=== PATIENT | male | born 1955 | race Two or more races ===

== ENCOUNTER 2017-08-25 12:08 | Inpatient (IN) | payer BC ==
[~2017-08-25] VITALS: Ht 180.3 cm; Wt 89.3 kg
[2017-08-25] MEDS ORDERED: ACETAMINOPHEN 500 MG TABLET ONE (13:52)
[2017-08-25] MEDS ORDERED: CEFAZOLIN PMX 1GM/50ML 50 ML ONE (13:53)
[2017-08-25] MEDS ORDERED: ACETAMINOPHEN 500 MG TABLET PO ONE (14:00)
[2017-08-25] MEDS ORDERED: SODIUM CHLORIDE 0.9% 1,000ML IVBOLUS ONE (14:00)
[2017-08-25] MEDS ORDERED: SODIUM CHLORIDE FLUSH 10ML SYR IVF ONE (14:00)
[2017-08-25] MEDS ORDERED: CEFAZOLIN PMX 1GM/50ML 50 ML IVPB ONE (14:00)
[2017-08-25 14:19] LABS: HEMATOCRIT 36.7 % (39.2-51.8); HEMOGLOBIN 12.5 g/dL (13.7-18.0); WHITE BLOOD COUNT 13.6 x10^3/uL (3.4-10)
[2017-08-25] MEDS ORDERED: METF500T4 PO (14:22)
[2017-08-25] MEDS ORDERED: LISI-167 PO (14:22)
[2017-08-25] MEDS ORDERED: IBUP-1223 PO (14:22)
[2017-08-25] MEDS ORDERED: METO25TA35 PO (14:22)
[2017-08-25 14:31] LABS: BLOOD UREA NITROGEN 20 mg/dL (7-18)
[2017-08-25] MEDS ORDERED: NS + 20MEQ KCL 1,000 ML IV SCH (14:55)
[2017-08-25] MEDS ORDERED: POLYETHYLENE GLYCOL 17 GM PACKET PO PRN (15:00)
[2017-08-25] MEDS ORDERED: DOCUSATE 100 MG CAPSULE PO PRN (15:00)
[2017-08-25] MEDS ORDERED: ONDANSETRON 2MG/ML, 2ML IVPush PRN (15:00)
[2017-08-25] MEDS ORDERED: hydrALAzine 20 MG/ML, 1ML IV PRN (15:30)
[2017-08-25] MEDS ORDERED: VANCOMYCIN PER PHARMACY MC PRN (15:30)
[2017-08-25] MEDS ORDERED: ENALAPRILAT 1.25 MG/ML, 2ML IV PRN (15:30)
[2017-08-25] MEDS ORDERED: GADOBUTROL 10 MMOL/10 ML PFS ONE (15:38)
[2017-08-25] MEDS: INSULIN ASPART 100 UNITS/ML, PEN SQ-INSULIN SCH ×2 (16:00→22:22)
[2017-08-25] MEDS ORDERED: PIPERACILLIN/TAZO/PMX 3.375GM 50 ML IV SCH (17:00)
[2017-08-25] MEDS ORDERED: PHARMACOKINETIC MONITORING MC PRN (17:30)
[2017-08-25] MEDS: VANCOMYCIN 1,700 MG in SODIUM CHLORIDE 0.9% 250 ML IV SCH (18:00)
[2017-08-25] MEDS: ACETAMINOPHEN 325 MG TABLET PO PRN (18:12)
[2017-08-25 19:01] VITALS: BP 129/68
[2017-08-25] MEDS: HYDROcodone/APAP 5/325 TABLET PO PRN (20:45)
[2017-08-25] MEDS: morphine SULFATE 10 MG/ML, 1ML IVPush PRN (20:45)
[2017-08-25] MEDS: METOPROLOL TARTRATE 25 MG TABLET PO SCH (22:21)
[2017-08-25] MEDS: metFORMIN 500 MG TABLET PO SCH (22:22)
[2017-08-26] MEDS: HYDROcodone/APAP 5/325 TABLET PO PRN ×3 (00:08→22:21)
[2017-08-26 02:36] VITALS: BP_SYST 121; BP_SYST 122; BP_DIAS 64; BP_DIAS 72
[2017-08-26] MEDS: PIPERACILLIN/TAZO 3.375 GM in SODIUM CHLORIDE 0.9% 50 ML IV SCH ×4 (04:46→23:19)
[2017-08-26] MEDS: morphine SULFATE 10 MG/ML, 1ML IVPush PRN ×2 (05:00→22:21)
[2017-08-26 05:34] LABS: HEMATOCRIT 32.2 % (39.2-51.8); HEMOGLOBIN 10.9 g/dL (13.7-18.0); WHITE BLOOD COUNT 11.4 x10^3/uL (3.4-10)
[2017-08-26 05:47] LABS: BLOOD UREA NITROGEN 20 mg/dL (7-18)
[2017-08-26] MEDS: INSULIN ASPART 100 UNITS/ML, PEN SQ-INSULIN SCH ×4 (07:00→22:28)
[2017-08-26] MEDS ORDERED: MIDAZOLAM 1 MG/ML, 2ML ONE (07:05)
[2017-08-26] MEDS ORDERED: NEOSPORIN OINT, 15GM ONE (07:06)
[2017-08-26] MEDS ORDERED: PROPOFOL 10 MG/ML, 20ML ONE (07:53)
[2017-08-26] MEDS ORDERED: FENTANYL PF 250 MCG/5ML ONE (07:53)
[2017-08-26] MEDS ORDERED: ONDANSETRON 2MG/ML, 2ML ONE (07:54)
[2017-08-26] MEDS ORDERED: BUPIVACAINE/PF 0.5% ONE (07:56)
[2017-08-26] MEDS ORDERED: HYDROmorphone 1 MG/ML, 1ML ONE (08:00)
[2017-08-26] MEDS ORDERED: OXYcodone 5 MG/5 ML ORAL.SOL UDC PO PRN (08:30)
[2017-08-26] MEDS ORDERED: LORazepam 2 MG/ML, 1ML IVPush PRN (08:30)
[2017-08-26] MEDS ORDERED: PROMETHAZINE 25 MG/ML, 1ML IV PRN (08:30)
[2017-08-26] MEDS ORDERED: ALBUTEROL/IPRATROPIUM 2.5MG/0.5MG, 3 ML NPPB PRN (08:30)
[2017-08-26] MEDS ORDERED: LABETALOL 5MG/ML, 20ML IV PRN (08:30)
[2017-08-26] MEDS ORDERED: MIDAZOLAM 1 MG/ML, 2ML IV PRN (08:30)
[2017-08-26] MEDS ORDERED: EPHEDRINE 50 MG/ML, 1ML IVPush PRN (08:30)
[2017-08-26] MEDS ORDERED: ONDANSETRON 2MG/ML, 2ML IVPush PRN (08:30)
[2017-08-26] MEDS ORDERED: FENTANYL PF 100 MCG/2ML ONE (08:35)
[2017-08-26] MEDS ORDERED: ACETAMINOPHEN 650 MG/20.3 ML UDC ONE (08:35)
[2017-08-26] MEDS ORDERED: OXYcodone 5 MG/5 ML ORAL.SOL UDC ONE (08:35)
[2017-08-26] MEDS: FENTANYL PF 100 MCG/2ML IV PRN ×3 (08:37→08:54)
[2017-08-26] MEDS: ACETAMINOPHEN 325 MG TABLET PO PRN (08:40)
[2017-08-26] MEDS ORDERED: HYDROmorphone 2 MG/ML, 1ML ONE (08:56)
[2017-08-26] MEDS: HYDROmorphone 1 MG/ML, 1ML IV PRN ×2 (09:00→09:08)
[2017-08-26 09:54] VITALS: BP 143/74
[2017-08-26] MEDS: SENNA/DOCUSATE TABLET PO SCH (10:27)
[2017-08-26] MEDS: LISINOPRIL 10 MG TABLET PO SCH (10:28)
[2017-08-26] MEDS: METOPROLOL TARTRATE 25 MG TABLET PO SCH ×2 (10:28→22:21)
[2017-08-26] MEDS: metFORMIN 500 MG TABLET PO SCH ×2 (10:28→22:20)
[2017-08-26 12:59] VITALS: BP 143/69
[2017-08-26] MEDS: VANCOMYCIN 1,700 MG in SODIUM CHLORIDE 0.9% 250 ML IV SCH (13:07)
[2017-08-26 20:35] VITALS: BP 140/73
[2017-08-26 20:57] VITALS: BP 148/71
[2017-08-27] MEDS: HYDROcodone/APAP 5/325 TABLET PO PRN ×4 (02:56→16:49)
[2017-08-27 02:59] VITALS: BP 150/76
[2017-08-27] MEDS: PIPERACILLIN/TAZO 3.375 GM in SODIUM CHLORIDE 0.9% 50 ML IV SCH ×2 (06:38→13:40)
[2017-08-27] MEDS: INSULIN ASPART 100 UNITS/ML, PEN SQ-INSULIN SCH ×3 (06:39→16:23)
[2017-08-27 07:45] VITALS: BP 164/75
[2017-08-27] MEDS: VANCOMYCIN 1,700 MG in SODIUM CHLORIDE 0.9% 250 ML IV SCH (07:56)
[2017-08-27] MEDS: metFORMIN 500 MG TABLET PO SCH (07:57)
[2017-08-27] MEDS: LISINOPRIL 10 MG TABLET PO SCH (07:57)
[2017-08-27] MEDS: SENNA/DOCUSATE TABLET PO SCH (07:57)
[2017-08-27] MEDS: METOPROLOL TARTRATE 25 MG TABLET PO SCH (07:57)
[2017-08-27 13:41] VITALS: BP 151/77
[2017-08-27] MEDS ORDERED: HYDR-3240 PO (16:02)
[2017-08-27] MEDS ORDERED: AMOX1TAB64 PO (16:11)
[2017-08-27 16:34] VITALS: BP 166/80
== END 2017-08-27 17:30 | disposition home or self-care (01) | DRG 854 ==
LOC: SUATTDRO 14:54 → ED 14:54 → EDIP 14:55 → ED 16:29 → 4NOR 16:40
PROVIDERS: ADMIT Family Medicine; ATTEND Family Medicine
PROC: 0Y6Q0Z0 Detachment at Left 1st Toe, Complete, Open Approach (ICD-10-PCS; principal; 2017-08-26 07:30)
DX: A41.9 Sepsis, unspecified organism (principal); E44.0 Moderate protein-calorie malnutrition; M00.9 Pyogenic arthritis, unspecified; E11.69 Type 2 diabetes mellitus with other specified complication; E11.42 Type 2 diabetes mellitus with diabetic polyneuropathy; M86.172 Other acute osteomyelitis, left ankle and foot; E11.65 Type 2 diabetes mellitus with hyperglycemia; Z68.27 Body mass index [BMI] 27.0-27.9, adult; G62.9 Polyneuropathy, unspecified; I10 Essential (primary) hypertension; L03.032 Cellulitis of left toe; Z82.3 Family history of stroke; Z83.3 Family history of diabetes mellitus
CPT/HCPCS: 36415; 80048; 82040; 82962; 83605; 84145; 85025; 85651; 86140; 87040; 87070; 87075; 87077; 87106; 87147; 87176; 87205; 88305; 93005; 96365; A9585; J0690; J1170; J2250; J2405; J2543; J2704; J3010; J3370; J3480; J3490; J2270; J7030; J7050